=== PATIENT | female | born 1960 | race Caucasian/White ===

== ENCOUNTER → 2024-01-30 15:04 | Outpatient (REF) | payer OTHER, SELFPAY ==
[2024-01-30 18:00] LABS: Alkaline Phosphatase, Total 89 U/L (38-126)
[2024-01-30 19:42] LABS: Alk Phos After Heat 22; Alkaline Phosphatase Percent 24.72
== END ==
LOC: REG 15:04
DX: R74.01 Elevation of levels of liver transaminase levels (principal)
CPT/HCPCS: 36415; 84078